=== PATIENT | male | born 1940 | race Caucasian/White ===

== ENCOUNTER → 2016-08-03 | Outpatient (CLI) | payer OTHER | LOC: BHFA 09:15 | PROVIDERS: ATTEND Internal Medicine Cardiovascular Disease | DX: I25.10 Atherosclerotic heart disease of native coronary artery without angina pectoris (principal); I10 Essential (primary) hypertension; E78.5 Hyperlipidemia, unspecified ==

== ENCOUNTER → 2017-09-23 | Outpatient (CLI) | payer OTHER | LOC: BHFA 13:00 | PROVIDERS: ATTEND Internal Medicine Cardiovascular Disease | DX: I25.10 Atherosclerotic heart disease of native coronary artery without angina pectoris (principal) | CPT/HCPCS: 78452; 93017; A9500 ==

== ENCOUNTER 2018-06-14 07:45 | Day surgery (SDC) | payer OTHER ==
[2018-06-14] MEDS ORDERED: DIAZEPAM 5 MG TAB PO ONE (07:50)
[2018-06-14] MEDS ORDERED: FAMOTIDINE 20 MG TAB PO ONE (07:50)
[2018-06-14] MEDS ORDERED: diphenhydrAMINE 25 MG CAP PO ONE ×2 (07:50→08:13)
[2018-06-14] MEDS ORDERED: ASPIRIN EC 325 MG TAB PO ONE ×2 (07:50→08:13)
[2018-06-14] MEDS ORDERED: NS 1,000 ML IV ONE (07:50)
[2018-06-14] MEDS ORDERED: FAMOTIDINE 20 MG TAB ONE (08:13)
[2018-06-14] MEDS ORDERED: DIAZEPAM 5 MG TAB ONE (08:14)
[2018-06-14 08:25] LABS: PLATELET COUNT 204 10^3/uL (150-400)
[2018-06-14 08:32] LABS: INR 1.02 (0.83-1.16)
[2018-06-14] MEDS ORDERED: LIDOCAINE 1% 300 MG/30 ML SDV ONE (10:31)
[2018-06-14] MEDS ORDERED: fentaNYL 100 MCG/2 ML INJ ONE ×2 (10:31→14:38)
[2018-06-14] MEDS ORDERED: HEPARIN 10,000 UNIT/10 ML MDV (1,000 UNIT/ML) ONE (10:32)
[2018-06-14] MEDS ORDERED: MIDAZOLAM 2 MG/2 ML VIAL ONE ×2 (10:32→14:39)
[2018-06-14] MEDS ORDERED: VERAPAMIL 5 MG/2 ML VIAL ONE (10:32)
[2018-06-14] MEDS ORDERED: IOPAMIDOL (ISOVUE-370) 150 ML BTL IV ONE (10:32)
--- NOTE | 2018-06-14 11:25 | PDGENHP ---
History & Physical Chief Complaint: Increased HOGUE. History of Present Illness: He has a history of CAD with prior PCI procedures. Last time was in 2008. For at least the last couple of years, he has had nuclear stress test results indicating lateral ischemia. However, he was stable without symptoms. Since he saw Dr. Armijo last September, he has developed increasing dyspnea on exertion concerning for an anginal equivalent. Pertinent Past, Social, Family History: See Dr. Micah Armijo's note from October 07 2017 which has been placed on the chart for informational purposes. Relevant Physical Exam: A&O x 3. Lungs CTA. RRR w/o murmur. No edema. Normal Vernon test on right wrist.
--- NOTE | 2018-06-14 11:28 | PDPROPOC ---
Sedation Plan of Care Sedation Plan of Care: vital signs stable, mental status noted, patient educated of risks, benefits, alternatives, patient can tolerate sedation ASA Classification: ASA 2 Planned drugs: fentanyl, midazolam Mallampati Score: Class 2 Mallampati Reference Image: Patient passed 3-3-2 rule?: Yes
[2018-06-14] MEDS ORDERED: HYDROCODONE/APAP 5/325 TAB PO PRN (15:44)
[2018-06-14] MEDS ORDERED: ATROPINE SULFATE 1 MG/10 ML SYR IVP PRN (15:44)
[2018-06-14] MEDS ORDERED: ONDANSETRON 4 MG/2 ML VIAL IVP PRN (15:44)
[2018-06-14] MEDS ORDERED: NITROGLYCERIN 0.4 MG BTL SL PRN (15:44)
--- NOTE | 2018-06-14 15:53 | PDDXCAT ---
Diagnostic Cath Note - . Date: 06/14/18 Division Human Resources Manager: Gal Indication: other (CAD with h/o prior PCI procedures, HOGUE as an anginal equivalent, and abnormal nuclear stress test.) - Procedure Access: right wrist Procedure: left heart catheterization, coronary angiography, left ventriculogram - Materials Left Heart Cath size: 5F Left Heart Cath materials: standard multipack (JL4, JR4, pigtail) - Findings-Left Heart Catheterization LM: Normal. LAD: Diffuse moderate to severe atherosclerosis affecting the entire LAD and its diagonal branches without an obvious culprit lesion. LCX: Previously placed stents in the mid to distal circumflex are widely patent. The circumflex gives off a few small obtuse marginal branches with diffuse moderate disease. There is a low posterolateral branch with a 90% proximal stenosis. However, the appearance of this lesion is unchanged since at least 2005. RCA: Previously placed stents, extending from the ostium of the RCA to the crux , are patent with minimal renarrowing. The distal branches of the RCA have mild irregularities. EDP: 26 mmHg LVEF: 50% Wall motion: No regional variation in contractility. Estimated blood loss: <50ml Closure method: TR Band Assessment: 1) Coronary artery disease as described above. 2) Low normal left ventricular systolic function. 3) Elevated left ventricular end-diastolic pressure.
--- NOTE | 2018-06-15 08:59 | CPEKG ---
Test Reason : OPEN Blood Pressure : / mmHG Vent. Rate : 057 BPM Atrial Rate : 056 BPM P-R Int : 201 ms QRS Dur : 163 ms QT Int : 446 ms P-R-T Axes : 041 -38 -09 degrees QTc Int : 435 ms Sinus rhythm Right bundle branch block Confirmed by Addy Whitman ([id number]) on 06/15/2018 8:59:13 AM Referred By: Matt Santo Confirmed By:Addy Whitman
== END 2018-06-14 17:53 | disposition home or self-care (01) ==
LOC: FCATH 07:45
PROVIDERS: ATTEND Internal Medicine Interventional Cardiology
DX: I25.10 Atherosclerotic heart disease of native coronary artery without angina pectoris (principal); R06.09 Other forms of dyspnea; R94.39 Abnormal result of other cardiovascular function study; I10 Essential (primary) hypertension; Z95.5 Presence of coronary angioplasty implant and graft
CPT/HCPCS: 93005; 93458; C1769; J1200; J1644; J2250; J3010; Q9967

== ENCOUNTER → 2018-07-12 | Outpatient (CLI) | payer OTHER | LOC: CIMAGING 09:01 | PROVIDERS: ATTEND Family Medicine | DX: R06.2 Wheezing (principal); J40 Bronchitis, not specified as acute or chronic | CPT/HCPCS: 71046-PO ==